=== PATIENT | female | born 1990 | race Caucasian/White ===

== ENCOUNTER 2019-10-13 09:50 | Emergency (ER) | payer OTHER, SELFPAY ==
[2019-10-13 10:01] VITALS: BP 144/78; PULSE 78; RESP 14; TEMP 37; O2SAT 99
[2019-10-13 10:20] VITALS: BP 133/79; PULSE 77; RESP 16; O2SAT 97
[2019-10-13] MEDS: predniSONE 20 MG TABLET 60 MG PO (11:20)
[2019-10-13] MEDS: CIPROFLOXACIN 500 MG TABLET PO (11:20)
[2019-10-13] MEDS: DOXYCYCLINE HYCLATE 100 MG TABLET PO (11:20)
[2019-10-13] MEDS: HYDROCODONE/ACET 5/325 TABLET 2 TAB PO (11:20)
--- NOTE | 2019-10-13 11:24 | ED.EAR ---
HPI - Ear Problem General Chief complaint: Ear Stated complaint: Thinks ear infection x 5 days Time Seen by Provider: 10/13/19 10:59 Source: patient Mode of arrival: Ambulatory Limitations: no limitations History of Present Illness HPI Narrative: C:Right ear pain' HPI: The patient is a 29-year-old female who presents to the emergency department with severe left ear pain for the last 5 days. The patient was seen at the [facility] and placed on ofloxacin lid drops for otitis externa or swimmer's ear. The patient states that she has developed increased pain and discomfort as well as worsening swelling of her year. She was prescribed ibuprofen and Tylenol which is not touching her pain and discomfort. The patient denies any trauma to her ear. She has had no fever chills or sweats she has had decreased hearing in the ear she has mild headache no sore throat denies shortness of breath cough chest pain she has had some mild disequilibrium but has not fallen or injured herself. She has had nausea but no vomiting and has had normal bowel movements. Her pain and discomfort is a dull achy discomfort that is 10/10 in intensity Related Data Previous Rx's Medication Instructions Recorded ciprofloxacin HCl [Cipro] 500 mg PO Q12H #14 tab 10/13/19 doxycycline hyclate 100 mg PO BID #14 tab 10/13/19 hydrocodone-acetaminophen [[place]] 1 tab PO Q8H PRN #10 tab 10/13/19 prednisone 40 mg PO DAILY #8 tab 10/13/19 Allergies Allergy/AdvReac Type Severity Reaction Status Date / Time divalproex sodium Allergy Unknown Verified 10/13/19 10:04 [From Depakote] sumatriptan [From Imitrex] Allergy Unknown Verified 10/13/19 10:04 Review of Systems Review of Systems Narrative: Her review of systems were all negative except for those mentioned in the history of present illness. Patient History Social History Smoking Status: Never smoker Smoking Status: Never smoker alcohol intake frequency: 0-2 drinks per day Substance Use Type: does not use Exam Narrative Exam Narrative: PHYSICAL EXAM: CONSTITUTIONAL: Awake, Alert, Oriented, Coherent, Cooperative in moderate distress. She appears to be very uncomfortable HEAD: AT/NC EENT: PERRL, FROM of eyes, no discharge, no nystagmus EARS:No drainage from the either ear. Her right tympanic membrane is intact. The left tympanic membrane is minimally visualized. She has a macerated quite raw swollen external canal of the left ear. Her tragus is ext quiz it Arelis tender the entire auricle is red and swollen and tender to palpation. She has mild tenderness to palpation over her right mastoid. The anterior cervical chain of lymph nodes is tender without any discrete mass or lymph node palpable the preauricular and postauricular arm areas soft tissue are tender to palpation. NOSE:No epistaxis or nasal drainage MOUTH:Oral mucosa is moist and pink, posterior pharynx is without erythema or exudate. NECK: Supple, no obvious JVD, Trachea is midline without stridor, no palpable LN. SPINE: Palpationof the cervical, Thoracic, Lumbar or Sacral spine reveals no gross deformity or tenderness. No CVA tenderness. LUNGS: Clear, symmetrical breath sounds without respiratory distress. HEART: Normal heart tones, regular rhythm and rate without murmur. ABDOMEN: Soft, non-tender, normal bowel sounds without guarding, rebound, rigidity or palpable mass. NEURO: Awake, alert, oriented, conversive, cranial nerves II-XII are symmetrical , moves all 4 extremities and is ambulatory. Initial Vital Signs Initial Vital Signs: Vital Signs Temperature 98.6 F 10/13/19 10:01 Pulse Rate 78 10/13/19 10:01 Respiratory Rate 14 10/13/19 10:01 Blood Pressure 144/78 H 10/13/19 10:01 Pulse Oximetry 99 10/13/19 10:01 Course Orders Ordered: Discontinued Medications Hydrocodone Bitart/Acetaminophen ([place] 5/325) 2 tab PO NOW ONE Stop: 10/13/19 11:08 Last Admin: 10/13/19 11:20 Dose: 2 tab Documented by: NAGA Ciprofloxacin (Cipro) 500 mg PO NOW ONE Stop: 10/13/19 11:08 Last Admin: 10/13/19 11:20 Dose: 500 mg Documented by: NAGA Doxycycline Hyclate (Vibramycin) 100 mg PO NOW ONE Stop: 10/13/19 11:08 Last Admin: 10/13/19 11:20 Dose: 100 mg Documented by: NAGA Prednisone (Deltasone) 60 mg PO NOW ONE Stop: 10/13/19 11:08 Last Admin: 10/13/19 11:20 Dose: 60 mg Documented by: NAGA Vital Signs Vital signs: Vital Signs - 8 hr 10/13/19 11:41 Pulse Rate 96 H Respiratory Rate 18 Blood Pressure 142/97 H Pulse Oximetry 98 Medical Decision Making MDM Narrative Medical decision making narrative: Patient appears to have developed malignant otitis externa. This can be caused by a combination of bacteria including Staph aureus as well as Pseudomonas aeruginosa. Patient will continue her ear drops however she will be placed on Cipro 500 mg twice a day for the next 7 days to cover Pseudomonas and doxycycline 100 mg twice a day to cover Staph aureus. To help with the swelling and discomfort she has been prescribed prednisone. As a rescue medicine for severe pain and discomfort she has been prescribed [place] 7.5/325 tid, #10. Discharge Plan Departure Patient Disposition: Home Clinical Impression: Otitis externa Qualifiers: Otitis externa type: malignant Chronicity: acute Laterality: left Qualified Code(s): H60.22 - Malignant otitis externa, left ear Discharge Date/Time: 10/13/19 11:41 Instructions: How to Instill Ear Drops, DI for Otitis Externa Activity Restrictions/Additional Instructions: 1. You have been prescribed the appropriate medications for your otitis externa. Sometimes people developed severe malignant otitis externa which I believe you are developing. Continue putting the ear drops as prescribed in your left ear. However, you will take the additional medications prescribed for the next week. 2. Take the Cipro 500 mg twice a day as prescribed 3. Take the doxycycline 100 mg twice a day as prescribed 4. Take the prednisone 20 mg tablets 2 tablets daily for the next 4 days to help with the swelling pain pressure and discomfort 5. Continue to take your ibuprofen as prescribed for the pain and discomfort. 6. For severe pain and discomfort unrelieved by the combination of medications mentioned above and the ibuprofen you can take [place] as a rescue medication. 7. Follow-up with Dr. Fatima and ears nose throat doctor to evaluate your ear. This is going to take a couple of days for it to improve. You absolutely half to keep the ear dry except for the ear drops placed in your ear. If not better knee you need to be re-evaluated in 48-72 hours. Prescriptions: New prednisone 20 mg tablet 40 mg PO DAILY Qty: 8 RF: 0 doxycycline hyclate 100 mg tablet 100 mg PO BID Qty: 14 RF: 0 ciprofloxacin HCl [Cipro] 500 mg tablet 500 mg PO Q12H Qty: 14 RF: 0 hydrocodone-acetaminophen [[place]] 7.5-325 mg tablet 1 tab PO Q8H PRN (Reason: pain) Qty: 10 RF: 0 Referrals: Adrian Fatima MD [Physician] - (Malignant otitis externa left ear)
[2019-10-13 11:41] VITALS: BP 142/97; PULSE 96; RESP 18; O2SAT 98
== END 2019-10-13 11:41 | disposition home or self-care (01) ==
PROVIDERS: Emergency Provider Emergency Medicine
DX: H60.22 Malignant otitis externa, left ear (principal)
CPT/HCPCS: 99283